=== PATIENT | male | born 1955 | race American Indian/Alaskan Native ===

== ENCOUNTER 2017-04-08 15:13 | Emergency (ER) | payer OTHER ==
[2017-04-08 15:49] VITALS: BP 150/75; PULSE 90; RESP 16; TEMP 98.6; O2SAT 98
[2017-04-08 17:04] LABS: ALB/GLOB RATIO 0.9 (1.0-2.1); ALBUMIN 4.3 g/dL (3.5-5.0); ALT/SGPT 42 U/L (21-72); AST/SGOT 43 U/L (17-59); BLOOD UREA NITROGEN 22 mg/dl (9-20); GFR AFRICAN-AMERICAN > 60; GFR NON-AFRICAN AMERICAN > 60
[2017-04-08 17:12] LABS: B-TYPE NATRIURETIC PEPTIDE 169 pg/ml (0-900)
[2017-04-08 17:28] LABS: BASO # 0.1 K/uL (0.0-0.2); BASO % 0.8 % (0.0-2.0); EOS # 0.3 K/uL (0.0-0.7); EOS % 3.2 % (0.0-4.0); HEMOGLOBIN 17.8 g/dL (12.0-18.0); LYMPH # 2.2 K/uL (1.0-4.3); LYMPH % 25.7 % (20.0-40.0); MEAN CORPUSCULAR HEMOGLOBIN 36.9 pg (27.0-31.0); MEAN CORPUSCULAR HGB CONC 35.1 g/dL (33.0-37.0); MEAN PLATELET VOLUME 8.7 fl (7.2-11.7); MONO # 1.2 K/uL (0.0-0.8); MONO % 14.4 % (0.0-10.0); NEUT # 4.8 K/uL (1.8-7.0); NEUT % 55.9 % (50.0-75.0); RBC 4.82 Mil/uL (4.40-5.90); RED CELL DISTRIBUTION WIDTH 14.7 % (11.5-14.5); WHITE BLOOD COUNT 8.5 K/uL (4.8-10.8)
[2017-04-08] MEDS ORDERED: Enoxaparin 100 mg Syringe SC STA (17:46)
--- NOTE | 2017-04-08 17:50 | US ---
PROCEDURE: Bilateral lower extremity venous duplex Doppler. HISTORY: Bilateral calf pain COMPARISON: None available. TECHNIQUE: Bilateral common femoral, superficial femoral, popliteal and posterior tibial veins were evaluated. Flow was assessed with color Doppler, compressibility, assessment of phasic flow and augmentation response. FINDINGS: COMMON FEMORAL VEIN: Right CFV: Unremarkable. Left CFV: Unremarkable. SUPERFICIAL FEMORAL VEIN: Right SFV: Distal right superficial femoral vein contains thrombus and is noncompressible Left SFV: Unremarkable. POPLITEAL VEIN: Right Popliteal: Distal popliteal vein contains thrombus and is noncompressible. Left Popliteal: Unremarkable. POSTERIOR TIBIAL VEIN: Right PTV: Unremarkable. Left PTV: Unremarkable. OTHER FINDINGS: None. IMPRESSION: There is evidence of DVT within the distal superficial femoral and popliteal veins. No evidence of left-sided DVT.
--- NOTE | 2017-04-08 18:03 | RAD ---
HISTORY: leg edema COMPARISON: No prior. FINDINGS: LUNGS: Linear atelectasis/ scarring changes right mid lung field. There may also be some localized pleural thickening in the right CP angle region. Slight elevation right hemidiaphragm. PLEURA: As above. No pneumothorax apparent. CARDIOVASCULAR: Normal. OSSEOUS STRUCTURES: No significant abnormalities. VISUALIZED UPPER ABDOMEN: Normal. OTHER FINDINGS: None. IMPRESSION: Linear atelectasis/ scarring changes right mid lung field. There may also be some localized pleural thickening in the right CP angle region. Slight elevation right hemidiaphragm.
[2017-04-08 18:13] LABS: MEAN CELL VOLUME 105.3 fl (80.0-94.0)
--- NOTE | 2017-04-08 18:21 | ED PDOC ---
HPI: General Adult Time Seen by Provider: 04/08/17 15:58 Chief Complaint (Nursing): Lower Extremity Problem/Injury History Per: Patient Additional Complaint(s): Pt. states for the past week he's had atraumatic pain and swelling to both calves R > L. He was seen in an Urgent Care earlier today and was advised to come to ED for further evaluation. Denies chest pain, SOB, palpitations, hemoptysis, hx of DVT or PE, recent prolonged immobilization of limb. Against Medical Advice - AMA Patient Left Against Medical Advice: The patient declines admission to the hospital and wishes to leave the Emergency Department. This action is against my medical advice. This decision was made with informed refusal. The patient was told that admission to the hospital is necessary. Explanation of the reasons why were discussed. The risks of leaving were explained to the patient and include, but are not limited to, worsening of known or currently unknown conditions, permanent disability and from undiagnosed or untreated conditions. The patient has the capacity to make this informed decision and understands my explanation of the current medical problem and risks of leaving. The patient voluntarily accepts these risks and signed an AMA form documenting our conversation. The patient was given the opportunity to ask questions and reconsider. The patient was encouraged to return to the Emergency Department at any time for further care. 04/08/17 18:[address] Gan and encouraged to stay for proper treatment but patient still refused. All of patient's questions were answered. Patient given strict instructions to return to ED immediately if SOB, chest pain , palpitations, or any other concerns arise. Patient verbalized understanding of risks of signing out AMA and still wants to sign out AMA. Past Medical History Reviewed: Historical Data, Nursing Documentation, Vital Signs Vital Signs: Last Vital Signs Temp 98.6 F 04/08/17 15:48 Pulse 90 04/08/17 15:48 Resp 16 04/08/17 15:48 BP 150/75 04/08/17 15:48 Pulse Ox 98 04/08/17 18:31 - Medical History PMH: HTN Denies: CHF - Surgical History Surgical History: Tonsillectomy - Family History Family History: States: No Known Family Hx - Allergies Allergies/Adverse Reactions: Allergies Allergy/AdvReac Type Severity Reaction Status Date / Time No Known Allergies Allergy Verified 04/08/17 15:33 Review of Systems ROS Statement: Except As Marked, All Systems Reviewed And Found Negative Musculoskeletal: Positive for: Leg Pain Physical Exam - Physical Exam Appears: Positive for: Well, Non-toxic, No Acute Distress Skin: Positive for: Normal Color, Warm. Negative for: Rash Eye Exam: Positive for: Normal appearance Cardiovascular/Chest: Positive for: Regular Rate, Rhythm Respiratory: Positive for: Normal Breath Sounds. Negative for: Respiratory Distress Pulses-Dorsalis Pedis (L): 2+ Pulses-Dorsalis Pedis (R): 2+ Extremity: Positive for: Normal ROM, Calf Tenderness (b/l without swelling), Capillary Refill (< 2 seconds of b/l feet) Neurologic/Psych: Positive for: Alert, Oriented - Laboratory Results Result Diagrams: 04/08/17 16:48 04/08/17 16:48 - ECG O2 Sat by Pulse Oximetry: 98 - Progress ED Course And Treament: Labs ordered. CXR, duplex b/l lower extremity vein ordered. 1622 CXR: Linear atelectasis/ scarring changes right mid lung field. There may also be some localized pleural thickening in the right CP angle region. Slight elevation right hemidiaphragm. 1748 Duplex b/l lower extremity vein: There is evidence of DVT within the distal superficial femoral and popliteal veins. No evidence of left-sided DVT. Lovenox ordered. Patient informed of results but refuses to stay in hospital and states he will sign out AMA. Patient informed of treatment plan with lovenox and risks of developing PE. Pt. is aware of consequences of not receiving proper treatment and still wants to sign out AMA. Denies chest pain, SOB, palpitations. Disposition - Clinical Impression Clinical Impression: Deep vein thrombosis (DVT), Left against medical advice - Patient ED Disposition Is Patient to be Admitted: No - Disposition Referrals: [facility] [Outside] [facility] [Outside] Disposition: Against Medical Advice Disposition Time: 16:10 Condition: STABLE Instructions: Deep Vein Thrombosis (Blood Clots in the Legs) (DC), How to Prevent Blood Clots, Leaving Against Medical Advice Forms: [facility] (Mongolian), [facility] ED AMA Print Language: SETSWANA
== END 2017-04-08 18:25 | disposition left against medical advice (07) ==
LOC: H.ER 15:13
DX: I82.403 Acute embolism and thrombosis of unspecified deep veins of lower extremity, bilateral (principal); I10 Essential (primary) hypertension
CPT/HCPCS: 71045; 80053; 83880; 85025; 93970; 96372; 99283; J1650

== ENCOUNTER 2017-04-14 14:59 | Inpatient (IN) | payer OTHER ==
--- NOTE | 2017-04-14 15:48 | ED PDOC ---
Lower Extremity Pain/Injury Time Seen by Provider: 04/14/17 15:25 Chief Complaint (Nursing): Lower Extremity Problem/Injury Chief Complaint (Provider): calf pain History Per: Patient Additional Complaint(s): 62-year-old male with history of hypertension presents to emergency department for evaluation of DVT to right leg. Patient was seen on April 08 when he was diagnosed with DVT. At that time he signed out AGAINST MEDICAL ADVICE. He did receive a dose of Lovenox at that time and states that right calf feels better today than it did last week. He returns today for further evaluation and states he can be admitted today if necessary. Patient lives in [place] and his primary doctor is out of the [facility] in [place]. He is currently living here temporarily for an assignment through his employer. Patient denies any chest pain, shortness of breath or dyspnea on exertion. He has no history of DVT or PE. Patient states last year he started taking baby aspirin daily. PMD: in [place] Past Medical History Reviewed: Historical Data, Nursing Documentation, Vital Signs Vital Signs: Last Vital Signs Temp 98.3 F 04/14/17 15:15 Pulse 104 H 04/14/17 15:15 Resp 16 04/14/17 15:15 BP 164/91 H 04/14/17 15:15 Pulse Ox 96 04/14/17 15:15 - Medical History PMH: HTN - Surgical History Surgical History: Tonsillectomy - Family History Family History: States: No Known Family Hx - Living Arrangements Living Arrangements: Alone - Social History Current smoker - smoking cessation education provided: Yes Alcohol: Social Drugs: Cannabis - Home Medications Home Medications: Ambulatory Orders Medication Instructions Recorded Aspirin [Ecotrin] 81 mg PO DAILY 04/14/17 amLODIPine [Norvasc] 5 mg PO DAILY 04/14/17 hydroCHLOROthiazide [Hydrodiuril] 25 mg PO DAILY 04/14/17 - Allergies Allergies/Adverse Reactions: Allergies Allergy/AdvReac Type Severity Reaction Status Date / Time No Known Allergies Allergy Verified 04/08/17 15:33 Wells Criteria for PE - Wells Criteria for Pulmonary Embolism Clinical Signs and Symptoms of DVT: Yes P.E is #1 Diagnosis, or Equally Likely: Yes Heart Rate >100: Yes Immobilization at least 3 days;Surgery previous 4 weeks: No Previous, objectively diagnosed PE or DVT: No Hemoptysis: No Malignancy w/treatment within 6 months, or palliative: No Total Score: 5.5 Review of Systems ROS Statement: Except As Marked, All Systems Reviewed And Found Negative Constitutional: Negative for: Fever Cardiovascular: Negative for: Chest Pain, Palpitations Respiratory: Negative for: Cough, Shortness of Breath Gastrointestinal: Negative for: Nausea, Vomiting Musculoskeletal: Positive for: Leg Pain (right calf pain, diagnosed last week with DVT) Neurological: Negative for: Weakness, Numbness, Incoordination, Headache, Dizziness Physical Exam - Reviewed Nursing Documentation Reviewed: Yes Vital Signs Reviewed: Yes - Physical Exam Appears: Positive for: Well, Non-toxic, No Acute Distress Skin: Negative for: Rash Eye Exam: Positive for: Normal appearance Cardiovascular/Chest: Positive for: Regular Rate, Rhythm Respiratory: Positive for: Normal Breath Sounds. Negative for: Wheezing, Respiratory Distress Extremity: Positive for: Normal ROM, Calf Tenderness (Mild swelling and tenderness to right calf, left calf non-tender). Negative for: Pedal Edema Neurologic/Psych: Positive for: Alert, Oriented, Gait (steady) - Laboratory Results Result Diagrams: 04/15/17 06:42 04/15/17 06:42 - ECG O2 Sat by Pulse Oximetry: 96 Pulse Ox Interpretation: Normal - Other Rad CXR X-Ray: Interpreted by Me, Viewed By Me X-Ray Interpretation: no acute finding, no interval change Doppler b/l lower extremities X-Ray: Read By Radiologist X-Ray Interpretation: see below CT chest X-Ray: Read By Radiologist X-Ray Interpretation: see below Medical Decision Making Medical Decision Makin62 year old male with right leg DVT. Previous records reviewed, patient was seen on 04/08/17 and was diagnosed with DVT but he signed out against medical advice after being offered admission Plan: CBC CMP PT/PTT Doppler right leg CXR IVF - patient refused fluids US: FINDINGS: COMMON FEMORAL VEIN: Right CFV: Unremarkable Left CFV: Unremarkable. SUPERFICIAL FEMORAL VEIN: Right SFV: Thrombus identified in the distal right superficial femoral vein Left SFV: Unremarkable. POPLITEAL VEIN: Right Popliteal: Thrombus identified in the popliteal vein Left Popliteal: Unremarkable. POSTERIOR TIBIAL VEIN: Right PTV: Thrombus identified in the right posterior tibial vein Left PTV: Unremarkable. OTHER FINDINGS: Absence of flow in the left superficial femoral artery and incidental finding. Right lower extremity, calf edema IMPRESSION: Deep thrombosis distal right superficial femoral vein, right popliteal vein and posterior tibial vein. Limited assessment , of what appears to be thrombus in the left superficial femoral artery the mid portion. Case was d/w medicine requisition approver, Dr. Marino. Patient will be admitted to [facility]. IM lovenox dose given in ED. Patient is aware of and agrees with admission. CT chest ordered as patient is tachycardic. CT: FINDINGS: PULMONARY ARTERIES: Evidence of bilateral pulmonary thromboembolism lower lobe predilection right greater than left. There is no evidence of central pulmonary embolic disease. Dilated main pulmonary artery suggests pulmonary arterial hypertension or the sequela of thromboembolic disease. AORTA: No acute findings. No thoracic aortic aneurysm. LUNGS: Unremarkable. No nodule, mass or pulmonary consolidation. PLEURAL SPACES: Trace bilateral pleural effusions. HEART: Unremarkable. No cardiomegaly. No significant pericardial effusion. LYMPH NODES: No lymphadenopathy. BONES, CHEST WALL: Unremarkable. No fracture or destructive lesion OTHER FINDINGS: Unremarkable. IMPRESSION: Acute bilateral pulmonary embolism right greater than left. Dr. Marino made aware of CT findings. Disposition - Clinical Impression Clinical Impression: Right leg DVT, Bilateral pulmonary embolism - Patient ED Disposition Is Patient to be Admitted: Yes - Disposition Disposition Time: 17:13 Condition: FAIR - Pt Status Changed To: Hospital Disposition Of: Observation - POA Present On Arrival: None Results - Lab Results Lab Results: 04/14/17 04/14/17 04/14/17 16:11 16:11 16:11 WBC 6.9 RBC 4.90 Hgb 18.1 H Hct 51.7 H MCV 105.4 H MCH 36.8 H MCHC 34.9 RDW 14.6 H Plt Count 378 D MPV 7.6 Neut % (Auto) 55.1 Lymph % (Auto) 30.8 [place] % (Auto) 10.1 H Eos % (Auto) 3.0 Baso % (Auto) 1.0 Neut # (Auto) 3.8 Lymph # (Auto) 2.1 [place] # (Auto) 0.7 Eos # (Auto) 0.2 Baso # (Auto) 0.1 PT 11.9 INR 1.1 APTT 33.6 Sodium 141 Potassium 3.4 L Chloride 96 L Carbon Dioxide 29 Anion Gap 19 BUN 17 Creatinine 0.9 Est GFR ( Amer) > 60 Est GFR (Non-Af Amer) > 60 Random Glucose 126 H Calcium 9.9 Total Bilirubin 0.6 AST 54 ALT 42 Alkaline Phosphatase 124 Total Protein 9.1 H Albumin 4.4 Globulin 4.8 H Albumin/Globulin Ratio 0.9 L
[2017-04-14] MEDS ORDERED: Sodium Chloride 0.9% 1,000 ML IV STA (15:58)
[2017-04-14 16:19] LABS: BASO # 0.1 K/uL (0.0-0.2); EOS # 0.2 K/uL (0.0-0.7); HEMOGLOBIN 18.1 g/dL (12.0-18.0); LYMPH # 2.1 K/uL (1.0-4.3); LYMPH % 30.8 % (20.0-40.0); MEAN CELL VOLUME 105.4 fl (80.0-94.0); MEAN CORPUSCULAR HEMOGLOBIN 36.8 pg (27.0-31.0); MEAN CORPUSCULAR HGB CONC 34.9 g/dL (33.0-37.0); MEAN PLATELET VOLUME 7.6 fl (7.2-11.7); MONO # 0.7 K/uL (0.0-0.8); MONO % 10.1 % (0.0-10.0); NEUT # 3.8 K/uL (1.8-7.0); NEUT % 55.1 % (50.0-75.0); NRBC % 0.3 % (0.0-0.0); RBC 4.9 Mil/uL (4.40-5.90); RED CELL DISTRIBUTION WIDTH 14.6 % (11.5-14.5); WHITE BLOOD COUNT 6.9 K/uL (4.8-10.8)
[2017-04-14 16:34] LABS: ALB/GLOB RATIO 0.9 (1.0-2.1); ALBUMIN 4.4 g/dL (3.5-5.0); ALT/SGPT 42 U/L (21-72); AST/SGOT 54 U/L (17-59); BLOOD UREA NITROGEN 17 mg/dl (9-20); CALCIUM 9.9 mg/dL (8.4-10.2); GFR AFRICAN-AMERICAN > 60; GFR NON-AFRICAN AMERICAN > 60
[2017-04-14 16:42] LABS: INR 1.1 (0.9-1.2); PARTIAL THROMBOPLASTIN TIME 33.6 Seconds (25.6-37.1); PROTHROMBIN TIME 11.9 Seconds (9.8-13.1)
[2017-04-14] MEDS ORDERED: Enoxaparin 150 mg Syringe SC STA (17:09)
[2017-04-14] MEDS ORDERED: Sodium Chloride 0.9% 100 ML ONE (17:22)
[2017-04-14] MEDS ORDERED: Iodixanol 320 MG/ML 100 ML BOTTLE IV ONE (17:22)
--- NOTE | 2017-04-14 18:41 | US ---
PROCEDURE: Bilateral lower extremity venous duplex Doppler. HISTORY: swelling both legs, right > left COMPARISON: None available. TECHNIQUE: Bilateral common femoral, superficial femoral, popliteal and posterior tibial veins were evaluated. Flow was assessed with color Doppler, compressibility, assessment of phasic flow and augmentation response. FINDINGS: COMMON FEMORAL VEIN: Right CFV: Unremarkable Left CFV: Unremarkable. SUPERFICIAL FEMORAL VEIN: Right SFV: Thrombus identified in the distal right superficial femoral vein Left SFV: Unremarkable. POPLITEAL VEIN: Right Popliteal: Thrombus identified in the popliteal vein Left Popliteal: Unremarkable. POSTERIOR TIBIAL VEIN: Right PTV: Thrombus identified in the right posterior tibial vein Left PTV: Unremarkable. OTHER FINDINGS: Absence of flow in the left superficial femoral artery and incidental finding. Right lower extremity, calf edema IMPRESSION: Deep thrombosis distal right superficial femoral vein, right popliteal vein and posterior tibial vein. Limited assessment, of what appears to be thrombus in the left superficial femoral artery the mid portion.
--- NOTE | 2017-04-14 18:49 | CT ---
PROCEDURE: CT Chest with contrast (Pulmonary Angiogram) HISTORY: tachycardia, right leg DVT COMPARISON: None available. TECHNIQUE: Axial computed tomography images were obtained of the chest in the pulmonary arterial phase of enhancement. Coronal and sagittal reformatted images were created and reviewed. Intravenous contrast dose: 90 cc Visipaque 320 Mean Hounsfield unit values in the main pulmonary artery: 363.43 Radiation dose: Total exam DLP = 398.73 mGy-cm. This CT exam was performed using one or more of the following dose reduction techniques: Automated exposure control, adjustment of the mA and/or kV according to patient size, and/or use of iterative reconstruction technique. FINDINGS: PULMONARY ARTERIES: Evidence of bilateral pulmonary thromboembolism lower lobe predilection right greater than left. There is no evidence of central pulmonary embolic disease. Dilated main pulmonary artery suggests pulmonary arterial hypertension or the sequela of thromboembolic disease. AORTA: No acute findings. No thoracic aortic aneurysm. LUNGS: Unremarkable. No nodule, mass or pulmonary consolidation. PLEURAL SPACES: Trace bilateral pleural effusions. HEART: Unremarkable. No cardiomegaly. No significant pericardial effusion. LYMPH NODES: No lymphadenopathy. BONES, CHEST WALL: Unremarkable. No fracture or destructive lesion OTHER FINDINGS: Unremarkable. IMPRESSION: Acute bilateral pulmonary embolism right greater than left. Communication of results: I discussed findings directly with the physician financial planning assistant at the time of this interpretation rendering critical results.
[2017-04-14 20:28] LABS: ABG ALLEN TEST YES; ARTERIAL BLOOD GAS HCO3 31.2 mmol/L (21-28); ARTERIAL BLOOD GAS HEMOGLOBIN 17.1 g/dL (11.7-17.4); ARTERIAL BLOOD GAS O2 CAPACITY 22.2 mL/dL (16-24); ARTERIAL BLOOD GAS O2 CONTENT 20.1 ML/dL (15-23); ARTERIAL BLOOD GAS O2 SAT 90.4 % (95-98); ARTERIAL BLOOD GAS PCO2 45 mm/Hg (35-45); ARTERIAL BLOOD GAS PH 7.48 (7.35-7.45); ARTERIAL BLOOD GAS PO2 51 mm/Hg (80-100); ARTERIAL BLOOD GAS TCO2 34.9 mmol/L (22-28)
[2017-04-14 20:43] LABS: TROPONIN I 0.032 ng/mL (0.00-0.120)
--- NOTE | 2017-04-15 07:56 | RAD ---
HISTORY: clearance COMPARISON: 04/14/2017 FINDINGS: LUNGS: No active pulmonary disease. PLEURA: No significant pleural effusion identified, no pneumothorax apparent. CARDIOVASCULAR: Normal. OSSEOUS STRUCTURES: No significant abnormalities. VISUALIZED UPPER ABDOMEN: Normal. OTHER FINDINGS: None. IMPRESSION: No active disease.
[2017-04-15 08:01] LABS: HEMOGLOBIN 16.1 g/dL (12.0-18.0); MEAN CELL VOLUME 105.8 fl (80.0-94.0); MEAN CORPUSCULAR HEMOGLOBIN 36.5 pg (27.0-31.0); MEAN CORPUSCULAR HGB CONC 34.5 g/dL (33.0-37.0); RBC 4.42 Mil/uL (4.40-5.90); RED CELL DISTRIBUTION WIDTH 14.6 % (11.5-14.5); WHITE BLOOD COUNT 6.4 K/uL (4.8-10.8)
[2017-04-15 08:11] LABS: ALB/GLOB RATIO 0.9 (1.0-2.1); ALBUMIN 3.5 g/dL (3.5-5.0); ALT/SGPT 41 U/L (21-72); AST/SGOT 41 U/L (17-59); BLOOD UREA NITROGEN 12 mg/dl (9-20); GFR AFRICAN-AMERICAN > 60; GFR NON-AFRICAN AMERICAN > 60; HDL CHOLESTEROL 44 MG/DL (30-70)
[2017-04-15 08:13] LABS: INR 1.1 (0.9-1.2); PARTIAL THROMBOPLASTIN TIME 37.7 Seconds (25.6-37.1); PROTHROMBIN TIME 12.3 Seconds (9.8-13.1)
[2017-04-15 08:20] LABS: LDL CHOLESTEROL 67 mg/dL (0-129)
[2017-04-15 08:35] LABS: T4 5.88 ug/dl (5.5-11.0)
--- NOTE | 2017-04-15 12:23 | CARD ---
APPROVED REPORT EKG Measurement Heart [id number] ID [id number] <Conclusion> Normal sinus rhythm Minimal voltage criteria for LVH, may be normal variant Inferior infarct, age undetermined Abnormal ECG
--- NOTE | 2017-04-15 14:33 | CP.PCM.HP ---
History of Present Illness - History of Present Illness History of Present Illness: CC: DVT R Lower Extremity. 62 y/o M, PMHx of HTN, recently Dx with DVT RLE on 04/08/17, came to [facility], [place] to be evaluated for mild R calf pain, intensity 4:10, aching, associated DVT to R leg on 04/15/17. Pt taking asa. Worsening symptoms: CT Chest showing PE b/l. Pt denied Chest pain, SOB, CARVAJAL. Aggravated factor: Movement/exercise. Pt denied: CP. palpitations, dizziness, syncope, orthopnea, SOB, fever, chills , n/v/d, abdominal pain, urinary symptoms, sick contact, recent travel out of [facility]. Pt from [place] currently living temporarily in [place] for assignment through his employer. On 04/08/17, Pt came to ER [facility] c/o of sharp pain in his both calves R>L , Pt was seen in an urgent care earlier that day and was advised to go to the ER for further evaluation. Pt came to [facility] and had Duplex b/l Lower extremity veins showing evidence of DVT withing the distal superficial femoral and popliteal veins. No evidence of left sided DVT, Pt was Tx with Lovenox. After evaluation while at the [facility], Pt declined the admission on 04/08/17 to the hospital and wishes to leave the ED unit. He was evaluated by Dr Gan encouraging him to stay for proper treatment explaining all the risk of living the hospital, but Pt refused and signed AMA on 04/08/17. CXR 04/14/17: No active disease. CT Chest 04/14/17: Acute b/l PE R > L. Ext. U-S 04/14/17: Deep thrombosis R distal superficial femoral vein, R popliteal vein and posterior tibial vein. Limited assessment of what appears to be thrombus in the left superficial femoral artery the mid portion. EKG 04/13/17: Normal sinus rythm, minimal voltage criteria for LVH, inferior infarct age undetermined. Present on Admission - Present on Admission Any Indicators Present on Admission: Yes History of DVT/PE: Yes Review of Systems - Constitutional Constitutional: Other (negative) - EENT Eyes: Requires Corrective Lenses Ears: Other (negative) Nose/Mouth/Throat: Other (negative) - Cardiovascular Cardiovascular: Other (negative) - Respiratory Respiratory: Other (negative) - Gastrointestinal Gastrointestinal: Other (negative) - Genitourinary Genitourinary: Other (negative) - Musculoskeletal Musculoskeletal: Other (RLE pain) - Integumentary Integumentary: Other (negative) - Neurological Neurological: Other (negative) - Psychiatric Psychiatric: Other (negative) - Endocrine Endocrine: Other (negative) - Hematologic/Lymphatic Hematologic: Other (negative) Past Patient History - Infectious Disease Hx of Infectious Diseases: None - Past Medical History & Family History Past Medical History?: Yes Pertinent Family History: Unknown - Past Social History Smoking Status: Former Smoker Alcohol: Social Drugs: Cannabis - CARDIAC Hx Cardiac Disorders: Yes Hx Hypertension: Yes - PULMONARY Hx Respiratory Disorders: No - NEUROLOGICAL Hx Neurological Disorder: No - HEENT Hx HEENT Problems: No - RENAL Hx Chronic Kidney Disease: No - ENDOCRINE/METABOLIC Hx Endocrine Disorders: No - HEMATOLOGICAL/ONCOLOGICAL Hx Blood Disorders: No - MUSCULOSKELETAL/RHEUMATOLOGICAL Hx Musculoskeletal Disorders: No Hx Falls: No - GASTROINTESTINAL Hx Gastrointestinal Disorders: No - GENITOURINARY/GYNECOLOGICAL Hx Genitourinary Disorders: No - PSYCHIATRIC Hx Substance Use: Yes (marijuana) - SURGICAL HISTORY Hx Surgeries: Yes Hx Tonsillectomy: Yes - ANESTHESIA Hx Anesthesia: Yes Hx Anesthesia Reactions: No Meds Allergies/Adverse Reactions: Allergies Allergy/AdvReac Type Severity Reaction Status Date / Time No Known Allergies Allergy Verified 04/08/17 15:33 Physical Exam - Constitutional Appears: No Acute Distress - Head Exam Head Exam: NORMAL INSPECTION - Eye Exam Eye Exam: PERRL - ENT Exam ENT Exam: Normal Exam - Neck Exam Neck exam: Positive for: Normal Inspection - Respiratory Exam Respiratory Exam: NORMAL BREATHING PATTERN - Cardiovascular Exam Cardiovascular Exam: REGULAR RHYTHM - GI/Abdominal Exam GI & Abdominal Exam: Normal Bowel Sounds, Soft - Extremities Exam Extremities exam: Positive for: tenderness (mild RLE) - Back Exam Back exam: NORMAL INSPECTION - Neurological Exam Neurological exam: Alert, Oriented x3 - Psychiatric Exam Psychiatric exam: Normal Mood - Skin Skin Exam: Warm Results - Vital Signs Recent Vital Signs: Last Vital Signs Temp 98.2 F 04/15/17 12:25 Pulse 77 04/15/17 12:25 Resp 18 04/15/17 12:25 BP 148/85 04/15/17 12:25 Pulse Ox 100 04/15/17 12:25 reviewed J.P. - Labs Result Diagrams: 04/16/17 05:30 04/16/17 14:03 Labs: Laboratory Results - last 24 hr 04/14/17 04/14/17 04/14/17 16:11 16:11 16:11 WBC 6.9 RBC 4.90 Hgb 18.1 H Hct 51.7 H MCV 105.4 H MCH 36.8 H MCHC 34.9 RDW 14.6 H Plt Count 378 D MPV 7.6 Neut % (Auto) 55.1 Lymph % (Auto) 30.8 [place] % (Auto) 10.1 H Eos % (Auto) 3.0 Baso % (Auto) 1.0 Neut # (Auto) 3.8 Lymph # (Auto) 2.1 [place] # (Auto) 0.7 Eos # (Auto) 0.2 Baso # (Auto) 0.1 PT 11.9 INR 1.1 APTT 33.6 pCO2 pO2 HCO3 ABG pH ABG Total CO2 ABG O2 Saturation ABG O2 Content ABG Base Excess ABG Hemoglobin ABG Carboxyhemoglobin POC ABG HHb (Measured) ABG Methemoglobin ABG O2 Capacity Abhilash Test A-a O2 Difference Hgb O2 Saturation FiO2 Sodium 141 Potassium 3.4 L Chloride 96 L Carbon Dioxide 29 Anion Gap 19 BUN 17 Creatinine 0.9 Est GFR ( Amer) > 60 Est GFR (Non-Af Amer) > 60 Random Glucose 126 H Calcium 9.9 Total Bilirubin 0.6 AST 54 ALT 42 Alkaline Phosphatase 124 Troponin I NT-Pro-B Natriuret Pep Total Protein 9.1 H Albumin 4.4 Globulin 4.8 H Albumin/Globulin Ratio 0.9 L Triglycerides Cholesterol LDL Cholesterol Direct HDL Cholesterol Thyroxine (T4) TSH 3rd Generation 04/14/17 04/14/17 04/15/17 19:55 20:11 06:42 WBC 6.4 RBC 4.42 Hgb 16.1 D Hct 46.8 MCV 105.8 H MCH 36.5 H MCHC 34.5 RDW 14.6 H Plt Count 361 MPV Neut % (Auto) Lymph % (Auto) [place] % (Auto) Eos % (Auto) Baso % (Auto) Neut # (Auto) Lymph # (Auto) [place] # (Auto) Eos # (Auto) Baso # (Auto) PT INR APTT pCO2 45 pO2 51 L HCO3 31.2 H ABG pH 7.48 H ABG Total CO2 34.9 H ABG O2 Saturation 90.4 L ABG O2 Content 20.1 ABG Base Excess 8.6 H ABG Hemoglobin 17.1 ABG Carboxyhemoglobin 5.1 H POC ABG HHb (Measured) 8.9 H ABG Methemoglobin 2.2 ABG O2 Capacity 22.2 Abhilash Test Yes A-a O2 Difference 42.0 Hgb O2 Saturation 83.8 L FiO2 21.0 Sodium Potassium Chloride Carbon Dioxide Anion Gap BUN Creatinine Est GFR ( Amer) Est GFR (Non-Af Amer) Random Glucose Calcium Total Bilirubin AST ALT Alkaline Phosphatase Troponin I 0.0320 NT-Pro-B Natriuret Pep 540 Total Protein Albumin Globulin Albumin/Globulin Ratio Triglycerides Cholesterol LDL Cholesterol Direct HDL Cholesterol Thyroxine (T4) TSH 3rd Generation 04/15/17 04/15/17 06:42 06:42 WBC RBC Hgb Hct MCV MCH MCHC RDW Plt Count MPV Neut % (Auto) Lymph % (Auto) [place] % (Auto) Eos % (Auto) Baso % (Auto) Neut # (Auto) Lymph # (Auto) [place] # (Auto) Eos # (Auto) Baso # (Auto) PT 12.3 INR 1.1 APTT 37.7 H pCO2 pO2 HCO3 ABG pH ABG Total CO2 ABG O2 Saturation ABG O2 Content ABG Base Excess ABG Hemoglobin ABG Carboxyhemoglobin POC ABG HHb (Measured) ABG Methemoglobin ABG O2 Capacity Abhilash Test A-a O2 Difference Hgb O2 Saturation FiO2 Sodium 142 Potassium 2.9 L Chloride 97 L Carbon Dioxide 34 H Anion Gap 14 BUN 12 Creatinine 0.9 Est GFR ( Amer) > 60 Est GFR (Non-Af Amer) > 60 Random Glucose 97 Calcium 9.0 Total Bilirubin 0.7 AST 41 ALT 41 Alkaline Phosphatase 94 Troponin I NT-Pro-B Natriuret Pep Total Protein 7.5 Albumin 3.5 D Globulin 4.0 H Albumin/Globulin Ratio 0.9 L Triglycerides 99 Cholesterol 143 LDL Cholesterol Direct 67 HDL Cholesterol 44 Thyroxine (T4) 5.88 TSH 3rd Generation 2.73 reviewed J.P. - EKG Data EKG comments: reviewed J.P. - Imaging and Cardiology Chest x-ray Status: Report reviewed by me (J.P.) CT scan - chest Status: Report reviewed by me (J.P.) Venous US Status: Report reviewed by me (Stanislaw) Assessment & Plan (1) Bilateral pulmonary embolism Status: Acute Priority: High (2) Right leg DVT Status: Acute Priority: High (3) Hypokalemia Status: Acute Priority: High (4) HTN (hypertension) Status: Acute Priority: Medium - Assessment and Plan (Free Text) Assessment: Possible DVT L superficial femoral artery Plan: O2 Sat 100%, continue NRB mask 10 L/M, keep on bed rest, continue Lovenox, Norvasc, KCL. - Date & Time Date: 04/15/17 Time: 13:30
[2017-04-15 14:36] VITALS: BMI 24.5
[2017-04-15 14:40] LABS: ABG ALLEN TEST YES; ARTERIAL BLOOD GAS HCO3 30.9 mmol/L (21-28); ARTERIAL BLOOD GAS HEMOGLOBIN 16.2 g/dL (11.7-17.4); ARTERIAL BLOOD GAS O2 CAPACITY 21.8 mL/dL (16-24); ARTERIAL BLOOD GAS O2 CONTENT 20.8 ML/dL (15-23); ARTERIAL BLOOD GAS O2 SAT 95.3 % (95-98); ARTERIAL BLOOD GAS PCO2 45 mm/Hg (35-45); ARTERIAL BLOOD GAS PH 7.47 (7.35-7.45); ARTERIAL BLOOD GAS PO2 58 mm/Hg (80-100); ARTERIAL BLOOD GAS TCO2 34.2 mmol/L (22-28)
[2017-04-15] MEDS ORDERED: Potassium Chloride 20 mEq/15 ml LIQ UD PO ONE (15:00)
[2017-04-15] MEDS: Enoxaparin 80 mg Syringe SC SCH (18:22)
[2017-04-16] MEDS: Enoxaparin 80 mg Syringe SC SCH ×2 (06:53→17:57)
[2017-04-16 07:17] LABS: BASO # 0.1 K/uL (0.0-0.2); BASO % 1.2 % (0.0-2.0); EOS # 0.3 K/uL (0.0-0.7); EOS % 5.5 % (0.0-4.0); HEMOGLOBIN 16.1 g/dL (12.0-18.0); LYMPH # 1.9 K/uL (1.0-4.3); LYMPH % 34.9 % (20.0-40.0); MEAN CORPUSCULAR HEMOGLOBIN 36.5 pg (27.0-31.0); MEAN CORPUSCULAR HGB CONC 34.2 g/dL (33.0-37.0); MEAN PLATELET VOLUME 7.9 fl (7.2-11.7); MONO # 0.5 K/uL (0.0-0.8); MONO % 9.2 % (0.0-10.0); NEUT # 2.7 K/uL (1.8-7.0); NEUT % 49.2 % (50.0-75.0); NRBC % 0.2 % (0.0-0.0); RBC 4.41 Mil/uL (4.40-5.90); RED CELL DISTRIBUTION WIDTH 14.6 % (11.5-14.5); WHITE BLOOD COUNT 5.6 K/uL (4.8-10.8)
[2017-04-16 07:26] LABS: INR 1.1 (0.9-1.2); PARTIAL THROMBOPLASTIN TIME 35.8 Seconds (25.6-37.1); PROTHROMBIN TIME 12.7 Seconds (9.8-13.1)
[2017-04-16 07:29] LABS: MEAN CELL VOLUME 106.7 fl (80.0-94.0)
[2017-04-16 14:35] LABS: LDL CHOLESTEROL 77 mg/dL (0-129)
[2017-04-16 14:40] LABS: T4 6.19 ug/dl (5.5-11.0)
[2017-04-16 15:00] LABS: BLOOD UREA NITROGEN 9 mg/dl (9-20); CALCIUM 9.1 mg/dL (8.4-10.2); GFR AFRICAN-AMERICAN > 60; GFR NON-AFRICAN AMERICAN > 60; HDL CHOLESTEROL 40 MG/DL (30-70)
[2017-04-16] MEDS ORDERED: Potassium Chloride 20 mEq/15 ml LIQ UD PO ONE ×2 (16:00→21:00)
[2017-04-16 16:43] LABS: ABG ALLEN TEST YES; ARTERIAL BLOOD GAS HCO3 29.3 mmol/L (21-28); ARTERIAL BLOOD GAS O2 CAPACITY 21.7 mL/dL (16-24); ARTERIAL BLOOD GAS O2 CONTENT 20.2 ML/dL (15-23); ARTERIAL BLOOD GAS O2 SAT 93.3 % (95-98); ARTERIAL BLOOD GAS PCO2 49 mm/Hg (35-45); ARTERIAL BLOOD GAS PH 7.42 (7.35-7.45); ARTERIAL BLOOD GAS PO2 59 mm/Hg (80-100); ARTERIAL BLOOD GAS TCO2 33.3 mmol/L (22-28)
--- NOTE | 2017-04-16 19:43 | CP.PCM.PN ---
Subjective - Date & Time of Evaluation Date of Evaluation: 04/16/17 Time of Evaluation: 19:40 - Subjective Subjective: F/U PE c.o Rash R leg , no R leg tenderness , no COB with O2 Objective - Vital Signs/Intake and Output Vital Signs (last 24 hours): Temp Pulse Resp BP Pulse Ox 98.4 F 77 20 155/92 H 100 04/16/17 19:23 04/16/17 19:23 04/16/17 19:23 04/16/17 19:23 04/16/17 19:23 - Medications Medications: Current Medications Amlodipine Besylate (Norvasc) 5 mg PO DAILY [facility] Last Admin: 04/16/17 08:33 Dose: 5 mg Enoxaparin Sodium (Lovenox) 80 mg SC Q12@0600,1800 [facility] PRN Reason: Protocol Last Admin: 04/16/17 17:57 Dose: 80 mg Potassium Chloride (Potassium Chloride Oral Soln) 20 meq PO ONCE ONE Stop: 04/16/17 21:01 - Labs Labs: 04/16/17 05:30 04/16/17 14:03 PT 12.7 Seconds (9.8-13.1) 04/16/17 05:30 INR 1.1 (0.9-1.2) 04/16/17 05:30 APTT 35.8 Seconds (25.6-37.1) 04/16/17 05:30 - Constitutional Appears: No Acute Distress - Head Exam Head Exam: NORMAL INSPECTION - Eye Exam Eye Exam: PERRL - ENT Exam ENT Exam: Normal Exam - Neck Exam Neck Exam: Normal Inspection - Respiratory Exam Respiratory Exam: NORMAL BREATHING PATTERN - Cardiovascular Exam Cardiovascular Exam: REGULAR RHYTHM - GI/Abdominal Exam GI & Abdominal Exam: Soft, Normal Bowel Sounds - Extremities Exam Additional comments: R leg no tenderness, mild rash R leg, increase in veins R leg - Back Exam Back Exam: NORMAL INSPECTION - Neurological Exam Neurological Exam: Alert, Oriented x3. absent: Motor Sensory Deficit - Psychiatric Exam Psychiatric exam: Normal Mood - Skin Skin Exam: Warm Assessment and Plan (1) Bilateral pulmonary embolism Status: Acute (2) Right leg DVT Status: Acute (3) Left leg DVT Status: Suspected (4) Hypokalemia Status: Acute (5) HTN (hypertension) Status: Acute - Assessment and Plan (Free Text) Plan: ABG PO2 59, trial of NC, f/u ECHO , Cardiology consult , [facility]
[2017-04-17 06:08] LABS: HEMOGLOBIN 15.9 g/dL (12.0-18.0); INR 1.1 (0.9-1.2); MEAN CELL VOLUME 106.7 fl (80.0-94.0); MEAN CORPUSCULAR HEMOGLOBIN 36.7 pg (27.0-31.0); MEAN CORPUSCULAR HGB CONC 34.4 g/dL (33.0-37.0); PROTHROMBIN TIME 12.5 Seconds (9.8-13.1); RBC 4.33 Mil/uL (4.40-5.90); RED CELL DISTRIBUTION WIDTH 14.4 % (11.5-14.5); WHITE BLOOD COUNT 5.4 K/uL (4.8-10.8)
[2017-04-17] MEDS: Enoxaparin 80 mg Syringe SC SCH (06:11)
[2017-04-17 06:34] LABS: ALB/GLOB RATIO 0.8 (1.0-2.1); ALBUMIN 3.4 g/dL (3.5-5.0); ALT/SGPT 43 U/L (21-72); AST/SGOT 51 U/L (17-59); BLOOD UREA NITROGEN 10 mg/dl (9-20); CALCIUM 9.1 mg/dL (8.4-10.2); GFR AFRICAN-AMERICAN > 60; GFR NON-AFRICAN AMERICAN > 60
--- NOTE | 2017-04-17 10:22 | CP.PCM.CON ---
Past Patient History - Infectious Disease Hx of Infectious Diseases: None - Past Medical History & Family History Past Medical History?: Yes - Past Social History Smoking Status: Former Smoker Alcohol: Social Drugs: Cannabis - CARDIAC Hx Cardiac Disorders: Yes Hx Hypertension: Yes - PULMONARY Hx Respiratory Disorders: No - NEUROLOGICAL Hx Neurological Disorder: No - HEENT Hx HEENT Problems: No - RENAL Hx Chronic Kidney Disease: No - ENDOCRINE/METABOLIC Hx Endocrine Disorders: No - HEMATOLOGICAL/ONCOLOGICAL Hx Blood Disorders: No - MUSCULOSKELETAL/RHEUMATOLOGICAL Hx Musculoskeletal Disorders: No Hx Falls: No - GASTROINTESTINAL Hx Gastrointestinal Disorders: No - GENITOURINARY/GYNECOLOGICAL Hx Genitourinary Disorders: No - PSYCHIATRIC Hx Substance Use: Yes (marijuana) - SURGICAL HISTORY Hx Surgeries: Yes Hx Tonsillectomy: Yes - ANESTHESIA Hx Anesthesia: Yes Hx Anesthesia Reactions: No Meds Allergies/Adverse Reactions: Allergies Allergy/AdvReac Type Severity Reaction Status Date / Time No Known Allergies Allergy Verified 04/08/17 15:33 - Medications Medications: Current Medications Amlodipine Besylate (Norvasc) 5 mg PO DAILY [facility] Last Admin: 04/17/17 10:00 Dose: 5 mg Enoxaparin Sodium (Lovenox) 80 mg SC Q12@0600,1800 [facility] PRN Reason: Protocol Last Admin: 04/17/17 06:11 Dose: 80 mg Results - Vital Signs Recent Vital Signs: Last Vital Signs Temp 98.6 F 04/17/17 08:00 Pulse 78 04/17/17 10:00 Resp 18 04/17/17 08:00 BP 162/86 H 04/17/17 10:00 Pulse Ox 100 04/17/17 08:00 - Labs Result Diagrams: 04/17/17 04:20 04/17/17 04:20 Labs: Laboratory Results - last 24 hr 04/16/17 04/16/17 04/17/17 14:03 15:59 04:20 WBC RBC Hgb Hct MCV MCH MCHC RDW Plt Count PT INR pCO2 49 H pO2 59 L HCO3 29.3 H ABG pH 7.42 ABG Total CO2 33.3 H ABG O2 Saturation 93.3 L ABG O2 Content 20.2 ABG Base Excess 5.9 H ABG Hemoglobin 16.0 ABG Carboxyhemoglobin 2.0 H POC ABG HHb (Measured) 6.5 H ABG Methemoglobin 1.4 ABG O2 Capacity 21.7 Abhilash Test Yes A-a O2 Difference 29.0 Hgb O2 Saturation 90.1 L FiO2 21.0 Sodium 140 139 Potassium 2.9 L 3.9 Chloride 96 L 96 L Carbon Dioxide 30 31 H Anion Gap 17 16 BUN 9 10 Creatinine 0.8 0.9 Est GFR ( Amer) > 60 > 60 Est GFR (Non-Af Amer) > 60 > 60 Random Glucose 78 101 Calcium 9.1 9.1 Total Bilirubin 0.6 AST 51 ALT 43 Alkaline Phosphatase 87 Total Protein 7.4 Albumin 3.4 L Globulin 4.0 H Albumin/Globulin Ratio 0.8 L Triglycerides 108 Cholesterol 148 LDL Cholesterol Direct 77 HDL Cholesterol 40 Vitamin B12 779 Thyroxine (T4) 6.19 TSH 3rd Generation 3.08 04/17/17 04/17/17 04:20 04:20 WBC 5.4 RBC 4.33 L Hgb 15.9 Hct 46.3 MCV 106.7 H MCH 36.7 H MCHC 34.4 RDW 14.4 Plt Count 320 PT 12.5 INR 1.1 pCO2 pO2 HCO3 ABG pH ABG Total CO2 ABG O2 Saturation ABG O2 Content ABG Base Excess ABG Hemoglobin ABG Carboxyhemoglobin POC ABG HHb (Measured) ABG Methemoglobin ABG O2 Capacity Abhilash Test A-a O2 Difference Hgb O2 Saturation FiO2 Sodium Potassium Chloride Carbon Dioxide Anion Gap BUN Creatinine Est GFR ( Amer) Est GFR (Non-Af Amer) Random Glucose Calcium Total Bilirubin AST ALT Alkaline Phosphatase Total Protein Albumin Globulin Albumin/Globulin Ratio Triglycerides Cholesterol LDL Cholesterol Direct HDL Cholesterol Vitamin B12 Thyroxine (T4) TSH 3rd Generation
--- NOTE | 2017-04-17 16:46 | CP.PCM.PN ---
Subjective - Date & Time of Evaluation Date of Evaluation: 04/17/17 Time of Evaluation: 12:20 - Subjective Subjective: F/U PE no pain R leg , no SOB , no CARVAJAL Objective - Vital Signs/Intake and Output Vital Signs (last 24 hours): Temp Pulse Resp BP Pulse Ox 98.1 F 80 20 158/87 H 99 04/17/17 15:41 04/17/17 15:41 04/17/17 15:41 04/17/17 15:41 04/17/17 16:02 - Medications Medications: Current Medications Amlodipine Besylate (Norvasc) 5 mg PO DAILY [facility] Last Admin: 04/17/17 10:00 Dose: 5 mg Apixaban (Eliquis) 10 mg PO BID [facility] PRN Reason: Protocol Stop: 04/23/17 17:01 Last Admin: 04/17/17 16:00 Dose: 10 mg - Labs Labs: 04/17/17 04:20 04/17/17 04:20 PT 12.5 Seconds (9.8-13.1) 04/17/17 04:20 INR 1.1 (0.9-1.2) 04/17/17 04:20 APTT 35.8 Seconds (25.6-37.1) 04/16/17 05:30 - Constitutional Appears: No Acute Distress - Head Exam Head Exam: NORMAL INSPECTION - Eye Exam Eye Exam: PERRL - ENT Exam ENT Exam: Normal Exam - Neck Exam Neck Exam: Normal Inspection - Respiratory Exam Respiratory Exam: NORMAL BREATHING PATTERN - Cardiovascular Exam Cardiovascular Exam: REGULAR RHYTHM - GI/Abdominal Exam GI & Abdominal Exam: Soft, Normal Bowel Sounds - Extremities Exam Additional comments: rash R leg lateral, increased leg veins, no leg tenderness - Back Exam Back Exam: NORMAL INSPECTION - Neurological Exam Neurological Exam: Alert, Oriented x3. absent: Motor Sensory Deficit - Psychiatric Exam Psychiatric exam: Normal Mood - Skin Skin Exam: Warm Assessment and Plan (1) Bilateral pulmonary embolism Status: Acute (2) Right leg DVT Status: Acute (3) Left leg DVT Status: Suspected (4) Hypokalemia Status: Acute (5) HTN (hypertension) Status: Acute - Assessment and Plan (Free Text) Plan: DC Lovenox , begin Eliquis, contine O2 N/C , 6 min PO walk test , f/u genetic markers , ECHO LV normal , mild mod LVH , LV function normal , LVEF 65-70 %
--- NOTE | 2017-04-17 17:32 | CARD ---
APPROVED REPORT EXAM: Two-dimensional and M-mode echocardiogram with Doppler and color Doppler. Other Information Quality : GoodRhythm : NSR INDICATION Abnormal EKG/Arrhythmia 2D DIMENSIONS IVSd1.84 (0.7-1.1cm)LVDd4.22 (3.9-5.9cm) LVOT Diameter2.28 (1.8-2.4cm)PWd1.43 (0.7-1.1cm) IVSs2.08 (0.8-1.2cm)LVDs3.02 (2.5-4.0cm) FS (%) 28.3 %PWs1.65 (0.8-1.2cm) M-Mode DIMENSIONS Left Atrium (MM)3.47 (2.5-4.0cm)IVSd1.24 (0.7-1.1cm) Aortic Root3.00 (2.2-3.7cm)LVDd6.00 (4.0-5.6cm) Aortic Cusp Exc.1.91 (1.5-2.0cm)PWd1.03 (0.7-1.1cm) IVSs2.21 cmFS (%) 46 % LVDs3.24 (2.0-3.8cm)PWs1.41 cm Mitral Valve MV E Rzutphsh65.7cm/sMV DECEL [id number] A Ifuiztsr788.5cm/s MV [id number] ratio0.6MVA (PHT)2.27cm2 TDI Lateral E' Peak V5.54cm/sMedial E' Peak V4.81cm/sE/Lateral E'11.9 E/Medial E'13.7 Pulmonary Valve PV Peak Bsgidjsp50.4cm/s LEFT VENTRICLE The left ventricle is normal size. There is mild to moderate concentric left ventricular hypertrophy. The left ventricular function is normal. The left ventricular ejection fraction is within the normal range. The Ejection Fraction is 65-70%. There is normal LV segmental wall motion. The left ventricular diastolic function is normal. RIGHT VENTRICLE The right ventricle is normal size. The right ventricular systolic function is normal. ATRIA The left atrium size is normal. The right atrium size is normal. AORTIC VALVE The aortic valve is normal in structure. No aortic regurgitation is present. There is no aortic valvular stenosis. MITRAL VALVE The mitral valve is normal in structure. There is no mitral valve stenosis. Mitral regurgitation is mild. TRICUSPID VALVE The tricuspid valve is normal in structure. There is no tricuspid valve regurgitation noted. There is no tricuspid valve stenosis. PULMONIC VALVE The pulmonary valve is normal in structure. There is no pulmonic valvular regurgitation. GREAT VESSELS The aortic root is normal in size. The IVC is normal in size and collapses >50% with inspiration. PERICARDIAL EFFUSION The pericardium appears normal. <Conclusion> The left ventricle is normal size. There is mild to moderate concentric left ventricular hypertrophy. The left ventricular function is normal. The left ventricular ejection fraction is within the normal range. The Ejection Fraction is 65-70%. Mitral regurgitation is mild.
[2017-04-18 00:27] VITALS: RESP 18
[2017-04-18 07:56] VITALS: TEMP 98
[2017-04-18 11:49] VITALS: BP 127/75; PULSE 71; O2SAT 100
--- NOTE | 2017-04-18 15:42 | CP.PCM.DIS ---
Provider - Provider Date of Admission: 04/15/17 15:07 Attending physician: Marco Marino MD Diagnosis - Discharge Diagnosis (1) Bilateral pulmonary embolism Status: Acute Priority: High (2) Right leg DVT Status: Acute Priority: High (3) Left leg DVT Status: Suspected (4) Hypokalemia Status: Acute Priority: High (5) HTN (hypertension) Status: Acute Priority: Medium Hospital Course - Lab Results Lab Results: Most Recent Lab Values WBC 5.4 K/uL (4.8-10.8) 04/17/17 04:20 RBC 4.33 Mil/uL (4.40-5.90) L 04/17/17 04:20 Hgb 15.9 g/dL (12.0-18.0) 04/17/17 04:20 Hct 46.3 % (35.0-51.0) 04/17/17 04:20 MCV 106.7 fl (80.0-94.0) H 04/17/17 04:20 MCH 36.7 pg (27.0-31.0) H 04/17/17 04:20 MCHC 34.4 g/dL (33.0-37.0) 04/17/17 04:20 RDW 14.4 % (11.5-14.5) 04/17/17 04:20 Plt Count 320 K/uL (130-400) 04/17/17 04:20 MPV 7.9 fl (7.2-11.7) 04/16/17 05:30 Neut % (Auto) 49.2 % (50.0-75.0) L 04/16/17 05:30 Lymph % (Auto) 34.9 % (20.0-40.0) 04/16/17 05:30 [place] % (Auto) 9.2 % (0.0-10.0) 04/16/17 05:30 Eos % (Auto) 5.5 % (0.0-4.0) H 04/16/17 05:30 Baso % (Auto) 1.2 % (0.0-2.0) 04/16/17 05:30 Neut # (Auto) 2.7 K/uL (1.8-7.0) 04/16/17 05:30 Lymph # (Auto) 1.9 K/uL (1.0-4.3) 04/16/17 05:30 [place] # (Auto) 0.5 K/uL (0.0-0.8) 04/16/17 05:30 Eos # (Auto) 0.3 K/uL (0.0-0.7) 04/16/17 05:30 Baso # (Auto) 0.1 K/uL (0.0-0.2) 04/16/17 05:30 Sickle Cell Screen Negative (NEGATIVE) 04/17/17 05:00 PT 12.5 Seconds (9.8-13.1) 04/17/17 04:20 INR 1.1 (0.9-1.2) 04/17/17 04:20 APTT 35.8 Seconds (25.6-37.1) 04/16/17 05:30 pCO2 49 mm/Hg (35-45) H 04/16/17 15:59 pO2 59 mm/Hg (80-100) L 04/16/17 15:59 HCO3 29.3 mmol/L (21-28) H 04/16/17 15:59 ABG pH 7.42 (7.35-7.45) 04/16/17 15:59 ABG Total CO2 33.3 mmol/L (22-28) H 04/16/17 15:59 ABG O2 Saturation 93.3 % (95-98) L 04/16/17 15:59 ABG O2 Content 20.2 ML/dL (15-23) 04/16/17 15:59 ABG Base Excess 5.9 mmol/L (-2.0-3.0) H 04/16/17 15:59 ABG Hemoglobin 16.0 g/dL (11.7-17.4) 04/16/17 15:59 ABG Carboxyhemoglobin 2.0 % (0.5-1.5) H 04/16/17 15:59 POC ABG HHb (Measured) 6.5 % (0.0-5.0) H 04/16/17 15:59 ABG Methemoglobin 1.4 % (0.0-3.0) 04/16/17 15:59 ABG O2 Capacity 21.7 mL/dL (16-24) 04/16/17 15:59 Abhilash Test Yes 04/16/17 15:59 A-a O2 Difference 29.0 mm/Hg 04/16/17 15:59 Hgb O2 Saturation 90.1 % (95.0-98.0) L 04/16/17 15:59 FiO2 21.0 % 04/16/17 15:59 Sodium 139 mmol/l (132-148) 04/17/17 04:20 Potassium 3.9 MMOL/L (3.6-5.0) 04/17/17 04:20 Chloride 96 mmol/L (98-107) L 04/17/17 04:20 Carbon Dioxide 31 mmol/L (22-30) H 04/17/17 04:20 Anion Gap 16 (10-20) 04/17/17 04:20 BUN 10 mg/dl (9-20) 04/17/17 04:20 Creatinine 0.9 mg/dl (0.8-1.5) 04/17/17 04:20 Est GFR ( Amer) > 60 04/17/17 04:20 Est GFR (Non-Af Amer) > 60 04/17/17 04:20 Random Glucose 101 mg/dL (75-110) 04/17/17 04:20 Calcium 9.1 mg/dL (8.4-10.2) 04/17/17 04:20 Total Bilirubin 0.6 mg/dl (0.2-1.3) 04/17/17 04:20 AST 51 U/L (17-59) 04/17/17 04:20 ALT 43 U/L (21-72) 04/17/17 04:20 Alkaline Phosphatase 87 U/L (38-126) 04/17/17 04:20 Troponin I 0.0320 ng/mL (0.00-0.120) 04/14/17 20:11 NT-Pro-B Natriuret Pep 540 pg/ml (0-900) 04/14/17 20:11 Total Protein 7.4 G/DL (6.3-8.2) 04/17/17 04:20 Albumin 3.4 g/dL (3.5-5.0) L 04/17/17 04:20 Globulin 4.0 gm/dL (2.2-3.9) H 04/17/17 04:20 Albumin/Globulin Ratio 0.8 (1.0-2.1) L 04/17/17 04:20 Triglycerides 108 mg/DL (0-149) 04/16/17 14:03 Cholesterol 148 mg/dL (0-199) 04/16/17 14:03 LDL Cholesterol Direct 77 mg/dL (0-129) 04/16/17 14:03 HDL Cholesterol 40 MG/DL (30-70) 04/16/17 14:03 Vitamin B12 779 pg/mL (239-931) 04/16/17 14:03 Thyroxine (T4) 6.19 ug/dl (5.5-11.0) 04/16/17 14:03 TSH 3rd Generation 3.08 mIU/ML (0.46-4.68) 04/16/17 14:03 Discharge Exam - Head Exam Head Exam: NORMAL INSPECTION Discharge Plan - Discharge Medications Prescriptions: Apixaban [Eliquis] 5 mg PO BID #60 tab - Follow Up Plan Condition: FAIR Disposition: HOME/ ROUTINE Instructions: Deep Vein Thrombosis (Blood Clots in the Legs) (DC) Additional Instructions: follow up with pmd 1 week
[2017-04-19 05:12] LABS: B2 GLYCOPROTEIN I AB(IGA) <9 SAU (<=20); B2 GLYCOPROTEIN I AB(IGG) <9 SGU (<=20); B2 GLYCOPROTEIN I AB(IGM) <9 SMU (<=20)
[2017-04-19 05:32] LABS: CARDIOLIPIN AB (IGA) <11 APL (<=11); CARDIOLIPIN AB (IGG) <14 GPL (<=14); CARDIOLIPIN AB (IGM) <12 MPL (<=12)
[2017-04-19 22:59] LABS: PHOSPHATIDYLSERINE AB IGA <20 U/mL (<20); PHOSPHATIDYLSERINE AB IGG <10 U/mL (<10); PHOSPHATIDYLSERINE AB IGM <25 U/mL (<25)
== END 2017-04-18 14:18 | disposition home or self-care (01) | DRG 176 ==
LOC: H.ER 14:59 → H.ERHOLD 17:08 → H.TEL 21:51 → OBSVTOIN 04-15 15:07
PROVIDERS: ADMIT Internal Medicine Pulmonary Disease; ATTEND Internal Medicine Pulmonary Disease
DX: I26.99 Other pulmonary embolism without acute cor pulmonale (principal); I82.411 Acute embolism and thrombosis of right femoral vein; I82.431 Acute embolism and thrombosis of right popliteal vein; I82.441 Acute embolism and thrombosis of right tibial vein; I82.412 Acute embolism and thrombosis of left femoral vein; I10 Essential (primary) hypertension; E87.6 Hypokalemia; Z87.891 Personal history of nicotine dependence